=== PATIENT | male | born 1980 | race Caucasian/White ===

== ENCOUNTER → 2019-05-08 09:29 | Outpatient (CLI) | payer MEDICAID | END | disposition home or self-care (01) | LOC: D.NM 09:29 | PROVIDERS: ATTEND Internal Medicine Gastroenterology | DX: R11.0 Nausea (principal); R10.9 Unspecified abdominal pain ==

== ENCOUNTER → 2019-06-11 07:44 | Outpatient (CLI) | payer MEDICAID | END | disposition home or self-care (01) | LOC: D.NM 06-08 09:30 → D.US 07:44 → D.NM 08:30 | PROVIDERS: ATTEND Internal Medicine Gastroenterology | DX: R11.0 Nausea (principal); K21.9 Gastro-esophageal reflux disease without esophagitis; R19.4 Change in bowel habit ==

== ENCOUNTER 2019-07-18 09:10 | Day surgery (SDC) | payer MEDICAID ==
[2019-07-17 10:20] LABS: HEMATOCRIT 41.4 % (42.0-54.0); HEMOGLOBIN 14.5 g/dL (13.5-17.5); MCH 29.5 pg (26.0-34.0); MCV 84.1 fL (80.0-100.0); MEAN PLATELET VOLUME 10.6 fL (7.4-10.4); RBC 4.92 10x6/uL (4.20-6.10); RDW 13.5 % (11.5-14.5); WBC 6.6 10x3/uL (4.8-10.8)
[2019-07-17 10:37] LABS: CALC OSMOLALITY 278 mosm/kg (275-300); CALCIUM 9.2 mg/dL (8.5-10.1); CARBON DIOXIDE 28.1 mmol/L (21.0-32.0); CHLORIDE - SERUM 102 mmol/L (98-107); CREATININE - SERUM 0.8 mg/dL (0.6-1.3); GLUCOSE 173 mg/dL (74-106); POTASSIUM - SERUM 4.5 mmol/L (3.5-5.1); SODIUM 137 mmol/L (136-145); UREA NITROGEN 15 mg/dL (7-18); eGFR NON AFRICAN AMERICAN > 90 mL/min (90-120)
[~2019-07-18] VITALS: Ht 180.3 cm; Wt 76.2 kg
[~2019-07-18 09:10] MED LIST: FENOFIBRATE160 MG PO; LISINOPRIL2.5 MG PO; MOBIC7.5 MG PO; PRAVACHOL80 MG PO; ZOLOFT50 MG PO
[2019-07-18 09:29] VITALS: BP 112/64; Ht 180.3 cm; Wt 76.2 kg
[2019-07-18] MEDS ORDERED: HYDROCODON-ACE1 EAC7 PO (12:13)
--- NOTE | 2019-07-18 14:36 | NUR ---
1420 DR PATTERSON AT BEDSIDE TO SEE PT. INSTRUCTIONS GIVEN AND IV REMOVED.
== END 2019-07-18 14:45 | disposition home or self-care (01) ==
LOC: D.OPS 09:10 → D.PAN 11:45 → D.OPS 11:45
PROVIDERS: Anesthesiology; ATTEND Surgery
DX: K82.8 Other specified diseases of gallbladder (principal); K21.0 Gastro-esophageal reflux disease with esophagitis; I10 Essential (primary) hypertension